=== PATIENT | male | born 1960 | race Caucasian/White ===

== ENCOUNTER 2025-08-08 11:57 | Emergency (ER) | payer OTHER ==
[~2025-08-08] VITALS: Ht 167.6 cm; Wt 77.0 kg
[2025-08-08 12:01] VITALS: BP 169/81; PULSE 90; RESP 14; TEMP 98.1; O2SAT 100
[2025-08-08] MEDS: ACETAMINOPHEN 325MG TABLET PO ONE (13:30)
== END 2025-08-08 13:47 | disposition left against medical advice (07) ==
LOC: ER 11:57
DX: S00.33XA Contusion of nose, initial encounter (principal); E11.9 Type 2 diabetes mellitus without complications; W01.10XA Fall on same level from slipping, tripping and stumbling with subsequent striking against unspecified object, initial encounter; Y93.89 Activity, other specified; Y92.89 Other specified places as the place of occurrence of the external cause; Y99.8 Other external cause status
CPT/HCPCS: 99283